=== PATIENT | male | born 1965 | race Caucasian/White ===

== ENCOUNTER → 2020-07-29 15:55 | Outpatient (BNVA) | payer OTHER, SELFPAY | PROVIDERS: PCP Internal Medicine; Visit Provider Urology ==

== ENCOUNTER → 2020-10-27 11:55 | Outpatient (BNVA) | payer OTHER, SELFPAY | PROVIDERS: PCP Internal Medicine; Visit Provider Urology ==

== ENCOUNTER → 2021-04-27 09:28 | Outpatient (BNVA) | payer OTHER, SELFPAY | PROVIDERS: PCP Internal Medicine; Visit Provider Urology ==

== ENCOUNTER → 2021-11-03 11:45 | Outpatient (BNVA) | payer OTHER, SELFPAY | PROVIDERS: PCP Internal Medicine; Visit Provider Urology | DX: Z13.89 Encounter for screening for other disorder (principal) ==

== ENCOUNTER 2022-05-04 11:32 | Outpatient (AMB) | payer OTHER, SELFPAY ==
--- NOTE | 2022-05-04 11:32 | A.OFFVIS_ITS ---
Intake Intake Visit Reasons: 6 Month PSA(SET) Intake Note: fu psa Hand Striper Required: No Allergies lisinopril Allergy (Unknown, Uncoded 03/15/23 09:21) Unknown Medication List - Last Reconciled 05/04/22 by Jairo Nam MD atorvastatin 40 mg PO DAILY losartan 100 mg PO DAILY naproxen 500 mg PO BID terazosin 5 mg PO BEDTIME 90 days HPI HPI Comments History of Present Illness Details Pérez NAVA is a very pleasant male. He is a patient of Dr Pinedo. He is seen for the following urologic conditions. - lower urinary tract symptoms - erectile dysfunction Telemedicine evaluation 15 minutes consultation [employer] [facility] Video attempted Trial of tadalafil Three month follow-up Change dosage Lower Urinary Tract Symptoms: Good response to terazosin Continue with 5 mg Nocturia x1-2 Current visit is for further evaluation of, lower urinary tract symptoms, predominate obstructive symptoms. Prior treatments include Cystitis in 2016 responded to short course of prophylaxis. Prostate Symptom Score Mild (0-8), Bother 3. Symptoms include weak stream, straining, nocturia (>2), and are progressing - 07/21 nocturia x 1 symptoms stable PSA 04/20 0.5, 04/21 0.5 Results from testing include cystoscopy - high riding bladder neck (median bar) 05/17 - patch on top of bladder - biopsy taken Prostate volume 30-50gm Erectile dysfunction Good response to daily tadalafil 5mg PFSH Medical History Bladder outlet obstruction Cystitis Erectile dysfunction due to arterial insufficiency High cholesterol HTN (hypertension) Weak urinary stream Review of Systems Const All systems reviewed & are unremarkable except as noted in HPI and below Reports no additional complaints Resp Reports no additional complaints GI Reports no additional complaints Reports as per HPI Musc Reports no additional complaints Physical Exam Telemedicine evaluation Appropriate responses Regular breathing rate and rhythm HEENT Head: Yes normal to inspection Ears: hearing grossly normal bilaterally Eyes General: appearance normal, both eyes and all related structures Neck Neck: Yes normal visual inspection Chest Chest palpation & inspection: normal inspection of the chest Resp Effort & Inspection: normal respiratory effort and able to speak in complete sentences Assessment & Plan Assessment & Plan (1) Weak urinary stream: Code(s): R39.12 - Poor urinary stream (2) BPH w urinary obs/LUTS: Code(s): N40.1 - Benign prostatic hyperplasia with lower urinary tract symptoms; N13.8 - Other obstructive and reflux uropathy (3) Erectile dysfunction: Comment: Good response to tadalafil daily Code(s): N52.9 - Male erectile dysfunction, unspecified Plan Trial of daily tadalafil Medications: New tadalafil 5 mg PO DAILY 90 tabs 1RF sexual activity 90 days N52.9 - Male erectile dysfunction, unspecified, N52.01 - Erectile dysfunction due to arterial insufficiency Refilled terazosin 5 mg PO BEDTIME 90 caps 1RF 90 days N52.9 - Male erectile dysfunction, unspecified Discontinued 2 tadalafil 60 minutes before activity Discontinued Reason: Patient no longer taking 20 mg PO .As needed 30 days PRN 30 tabs 0RF sexual activity N52.01 - Erectile dysfunction due to arterial insufficiency Patient Instructions: Imaging studies, laboratory and physical exam results were discussed and reviewed in detail. No major barriers to patient understanding were identified. An opportunity to ask questions regarding the treatment plan was provided. All questions were answered. The patient expressed understanding and agreement with the above treatment plan. The patient is aware they should contact our office by phone for worsening of their current condition or the appearance of new urologic symptoms. Compliance is encouraged with any medications and followup testing that is ordered. It is a privilege to participate in the urologic care of your patient. If you have any questions or concerns regarding treatment for the above conditions, or other urologic issues, please do not hesitate to contact me. The office telephone contact is [phone]. This note is constructed using voice recognition software. While every effort has been made to ensure accuracy bindery machine setter/set up operator errors may have been included. Yours sincerely, Dr Jairo Nam MD, [facility] - Urology Providers of Expert, Compassionate Care for the Genitourinary System Telehealth Telehealth Location of provider rendering services: practice address Location of patient: address on file Patient Identification confirmed using: Name, : Yes Telehealth method: video Patient verbally consented to treatment: Yes Patient verbally consented to billing insurance company: Yes Patient informed of any privacy concerns related to visit: Yes Coding Level of Care Code Tele Est Pt Level 4 (19574) Diagnoses Weak urinary stream R39.12 BPH w urinary obs/LUTS N40.1; N13.8 Erectile dysfunction N52.9
== END 2022-05-04 13:28 | disposition home or self-care (01) ==
LOC: HO.HUSH 11:32
PROVIDERS: PCP Internal Medicine; Visit Provider Urology
DX: N40.1 Benign prostatic hyperplasia with lower urinary tract symptoms (principal); R39.12 Poor urinary stream; N13.8 Other obstructive and reflux uropathy; N52.9 Male erectile dysfunction, unspecified
CPT/HCPCS: 99214; 99499

== ENCOUNTER → 2022-11-09 10:31 | Outpatient (BNVA) | payer OTHER, SELFPAY | PROVIDERS: PCP Internal Medicine; Visit Provider Urology | DX: N40.1 Benign prostatic hyperplasia with lower urinary tract symptoms (principal); N13.8 Other obstructive and reflux uropathy; N52.1 Erectile dysfunction due to diseases classified elsewhere; R35.1 Nocturia; R39.12 Poor urinary stream; R39.16 Straining to void; Z79.899 Other long term (current) drug therapy | CPT/HCPCS: 51798 ==

== ENCOUNTER 2023-03-15 09:20 | Outpatient (AMB) | payer OTHER, SELFPAY ==
--- NOTE | 2023-03-15 09:20 | MHC.OFFVIS ---
Intake Intake Visit Reasons: 6m follow up Intake Note: Patient is present for follow up BPH/Erectile Dysfunction Urology Medications: Tadalafil, Terazosin Blood Thinner: None Principal Trainer Required: No Allergies lisinopril Allergy (Unknown, Uncoded 03/15/23 09:21) Unknown HPI HPI Comments History of Present Illness Details Pérez NAVA is a very pleasant male. He is a patient of Dr Pinedo. He is seen for the following urologic conditions. 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 Prior treatments include Cystitis in 2017 responded to short course of prophylaxis. Prostate Symptom Score Mild (0-8), Bother 3. Symptoms include weak stream, straining, nocturia (>2), and are progressing - 07/21 nocturia x 1 symptoms stable PSA 04/20 0.5, 04/21 0.5 Results from testing include cystoscopy - high riding bladder neck (median bar) 05/17 - patch on top of bladder - biopsy taken Prostate volume 30-50gm Erectile dysfunction Good response to daily tadalafil 5mg [facility] Medical History Bladder outlet obstruction Cystitis Erectile dysfunction due to arterial insufficiency High cholesterol HTN (hypertension) Weak urinary stream Review of Systems Const All systems reviewed & are unremarkable except as noted in HPI and below Reports no additional complaints Resp Reports no additional complaints GI Reports no additional complaints Reports as per HPI Musc Reports no additional complaints Physical Exam Telemedicine evaluation Appropriate responses Regular breathing rate and rhythm HEENT Head: Yes normal to inspection Ears: hearing grossly normal bilaterally Eyes General: appearance normal, both eyes and all related structures Neck Neck: Yes normal visual inspection Chest Chest palpation & inspection: normal inspection of the chest Resp Effort & Inspection: normal respiratory effort and able to speak in complete sentences Assessment & Plan Assessment & Plan (1) BPH w urinary obs/LUTS: Code(s): N40.1 - Benign prostatic hyperplasia with lower urinary tract symptoms; N13.8 - Other obstructive and reflux uropathy (2) Erectile dysfunction: Comment: Good response to tadalafil daily Code(s): N52.9 - Male erectile dysfunction, unspecified (3) Weak urinary stream: Code(s): R39.12 - Poor urinary stream Plan Six month follow-up Patient Instructions: Imaging studies, laboratory and physical exam results were discussed and reviewed in detail. No major barriers to patient understanding were identified. An opportunity to ask questions regarding the treatment plan was provided. All questions were answered. The patient expressed understanding and agreement with the above treatment plan. The patient is aware they should contact our office by phone for worsening of their current condition or the appearance of new urologic symptoms. Compliance is encouraged with any medications and followup testing that is ordered. It is a privilege to participate in the urologic care of your patient. If you have any questions or concerns regarding treatment for the above conditions, or other urologic issues, please do not hesitate to contact me. The office telephone contact is [phone]. This note is constructed using voice recognition software. While every effort has been made to ensure accuracy manager forensic errors may have been included. Yours sincerely, Dr Jairo Nam MD, [facility] - Urology Providers of Expert, Compassionate Care for the Genitourinary System Telehealth Telehealth Location of provider rendering services: practice address Location of patient: address on file Patient Identification confirmed using: Name, : Yes Telehealth method: video Patient verbally consented to treatment: Yes Patient verbally consented to billing insurance company: Yes Patient informed of any privacy concerns related to visit: Yes Coding Level of Care Code Tele Est Pt Level 3 (83684) Diagnoses BPH w urinary obs/LUTS N40.1; N13.8 Erectile dysfunction N52.9 Weak urinary stream R39.12
== END 2023-03-15 10:22 | disposition home or self-care (01) ==
LOC: HO.HUSH 09:20
PROVIDERS: PCP Internal Medicine; Visit Provider Urology
DX: N40.1 Benign prostatic hyperplasia with lower urinary tract symptoms (principal); N13.8 Other obstructive and reflux uropathy; N52.9 Male erectile dysfunction, unspecified; R39.12 Poor urinary stream
CPT/HCPCS: 99213

== ENCOUNTER → 2023-03-15 09:20 | Outpatient (BNVA) | payer OTHER, SELFPAY | PROVIDERS: PCP Internal Medicine; Visit Provider Urology ==

== ENCOUNTER 2023-10-31 09:48 | Outpatient (AMB) | payer OTHER, SELFPAY ==
--- NOTE | 2023-10-31 10:19 | A.OFFVIS_ITS ---
Intake Visit Reasons: 6M PVR Intake Note: Patient is Present for PVR/ Urology Med: Terazosin, Tadalafil Antibiotic Allergy: None Blood Thinner: None Todays PVR: 57 Allergies lisinopril Allergy (Unknown, Uncoded 03/15/23 09:21) Unknown Medication List - Last Reconciled 10/31/23 by Jairo Nam MD atorvastatin 40 mg PO DAILY losartan 100 mg PO DAILY tadalafil 5 mg PO DAILY 90 days terazosin 5 mg PO BEDTIME 90 days HPI Comments Details: Pérez NAVA is a very pleasant male. He is a patient of Dr Pinedo. He is seen for the following urologic conditions. 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 Prior treatments include Cystitis in 2017 responded to short course of prophylaxis. Prostate Symptom Score Mild (0-8), Bother 3. Symptoms include weak stream, straining, nocturia (>2), and are progressing - 07/21 nocturia x 1 symptoms stable PSA 04/20 0.5, 04/21 0.5 Results from testing include cystoscopy - high riding bladder neck (median bar) 05/17 - patch on top of bladder - biopsy taken Prostate volume 30-50gm Erectile dysfunction Good response to daily tadalafil 5mg PFSH Medical History Bladder outlet obstruction Cystitis Erectile dysfunction due to arterial insufficiency High cholesterol HTN (hypertension) Weak urinary stream Review of Systems Const Denies chills and Denies fever(s) Card Reports no additional complaints and Denies syncope Resp Denies cough GI Denies abdominal pain and Denies heartburn Reports as per HPI and Denies change in libido Neuro Denies syncope Psych Denies change in libido Endo Denies change in libido Physical Exam Const General: cooperative, healthy appearing, comfortable and no acute distress Orientation/consciousness: patient oriented x3 HEENT Face and sinus: Yes normal facial exam Mouth: moist mucous membranes Neck Neck: Yes normal visual inspection, Yes full ROM and Yes trachea midline Chest Chest palpation & inspection: normal inspection of the chest Resp Effort & Inspection: normal respiratory effort, able to speak in complete sentences and no respiratory distress GI Inspection: Yes normal to inspection Back/Spine/Pelvis Cervical Spine: normal cervical lordosis Thoracic/Lumbar Spine: thoracic and lumbar spine normal to inspection Skin General skin exam: no rashes or lesions noted Neuro General: patient oriented x3, gait normal, tone normal and moves all extremities Extrem General: Yes normal to inspection and Yes capillary refill normal Office Procedures Post Void Residual Post Residual Void Post Void Residual (PVR): 57 [id number] Void Residual by ultrasound Assessment & Plan Assessment & Plan (1) Erectile dysfunction: Comment: Good response to tadalafil daily Code(s): N52.9 - Male erectile dysfunction, unspecified Category: Medical (2) BPH w urinary obs/LUTS: Code(s): N40.1 - Benign prostatic hyperplasia with lower urinary tract symptoms; N13.8 - Other obstructive and reflux uropathy Category: Medical (3) Weak urinary stream: Code(s): R39.12 - Poor urinary stream Category: Medical Plan Prescription refill Six-month follow-up Orders: Orders AMB Post Void Residual by ultrasound Today N13.8 - Other obstructive and reflux uropathy, N40.1 - Benign prostatic hyperplasia with lower urinary tract symptoms Patient Instructions: Imaging studies, laboratory and physical exam results were discussed and reviewed in detail. No major barriers to patient understanding were identified. An opportunity to ask questions regarding the treatment plan was provided. All questions were answered. The patient expressed understanding and agreement with the above treatment plan. The patient is aware they should contact our office by phone for worsening of their current condition or the appearance of new urologic symptoms. Compliance is encouraged with any medications and followup testing that is ordered. It is a privilege to participate in the urologic care of your patient. If you have any questions or concerns regarding treatment for the above conditions, or other urologic issues, please do not hesitate to contact me. The office telephone contact is [phone]. This note is constructed using voice recognition software. While every effort has been made to ensure accuracy core finisher errors may have been included. Yours sincerely, Dr Jairo Nam MD, [facility] - Urology Providers of Expert, Compassionate Care for the Genitourinary System Coding Level of Care Code Est Pt Level 3 (31511) Diagnoses Erectile dysfunction N52.9 BPH w urinary obs/LUTS N40.1; N13.8 Weak urinary stream R39.12 CPT Codes Post Residual Void - PVR CPT Code: 06709-Rufx Void Residual by ultrasound ([id number])
== END 2023-10-31 10:49 | disposition home or self-care (01) ==
PROVIDERS: PCP Internal Medicine; Visit Provider Urology
DX: N52.9 Male erectile dysfunction, unspecified (principal); N40.1 Benign prostatic hyperplasia with lower urinary tract symptoms; N13.8 Other obstructive and reflux uropathy; R39.12 Poor urinary stream
CPT/HCPCS: 99213

== ENCOUNTER → 2023-10-31 09:48 | Outpatient (BNVA) | payer OTHER, SELFPAY | PROVIDERS: PCP Internal Medicine; Visit Provider Urology | DX: N52.9 Male erectile dysfunction, unspecified (principal); N40.1 Benign prostatic hyperplasia with lower urinary tract symptoms; N13.8 Other obstructive and reflux uropathy; R39.12 Poor urinary stream | CPT/HCPCS: 51798 ==

== ENCOUNTER 2024-05-01 09:40 | Outpatient (AMB) | payer OTHER, SELFPAY ==
--- NOTE | 2024-05-01 09:51 | MHC.OFFVIS ---
Intake Visit Reasons: 6m follow up Intake Note: Patient is present for PVR Follow up Urology Med: Terazosin, Tadalafil- Patient is requesting refills on both meds Antibiotic Allergy:None Blood Thinner: None Last PSA: 2021 0.5 Last PVR:57ml Todays PVR:30ml Roll Wrapper Required: No Accompanied by: Self / Same As Patient Allergies lisinopril Allergy (Unknown, Uncoded 05/01/24 09:56) Unknown HPI Comments Details: Pérez NAVA is a very pleasant male. He is a patient of Dr Pinedo. He is seen for the following urologic conditions. 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 Prior treatments include Cystitis in 2016 responded to short course of prophylaxis. Prostate Symptom Score Mild (0-8), Bother 3. Symptoms include weak stream, straining, nocturia (>2), and are progressing - 07/21 nocturia x 1 symptoms stable PSA 04/20 0.5, 04/21 0.5 Results from testing include cystoscopy - high riding bladder neck (median bar) 05/17 - patch on top of bladder - biopsy taken Prostate volume 30-50gm Erectile dysfunction Good response to daily tadalafil 5mg [facility] Medical History HTN (hypertension) High cholesterol Bladder outlet obstruction Erectile dysfunction due to arterial insufficiency Cystitis Weak urinary stream Review of Systems Const Denies chills and Denies fever(s) Card Reports no additional complaints and Denies syncope Resp Denies cough GI Denies abdominal pain and Denies heartburn Reports as per HPI and Denies change in libido Neuro Denies syncope Psych Denies change in libido Endo Denies change in libido Physical Exam Const General: cooperative, healthy appearing, comfortable and no acute distress Orientation/consciousness: patient oriented x3 HEENT Face and sinus: Yes normal facial exam Mouth: moist mucous membranes Neck Neck: Yes normal visual inspection, Yes full ROM and Yes trachea midline Chest Chest palpation & inspection: normal inspection of the chest Resp Effort & Inspection: normal respiratory effort, able to speak in complete sentences and no respiratory distress GI Inspection: Yes normal to inspection Back/Spine/Pelvis Cervical Spine: normal cervical lordosis Thoracic/Lumbar Spine: thoracic and lumbar spine normal to inspection Skin General skin exam: no rashes or lesions noted Neuro General: patient oriented x3, gait normal, tone normal and moves all extremities Extrem General: Yes normal to inspection and Yes capillary refill normal Office Procedures Post Void Residual Post Residual Void Post Void Residual (PVR): 30 [id number] Void Residual by ultrasound Assessment & Plan Assessment & Plan (1) Erectile dysfunction: Comment: Good response to tadalafil daily Code(s): N52.9 - Male erectile dysfunction, unspecified Category: Medical (2) BPH w urinary obs/LUTS: Code(s): N40.1 - Benign prostatic hyperplasia with lower urinary tract symptoms; N13.8 - Other obstructive and reflux uropathy Category: Medical Plan Twelve month follow-up Orders: Orders AMB Post Void Residual by ultrasound Today N13.8 - Other obstructive and reflux uropathy, N40.1 - Benign prostatic hyperplasia with lower urinary tract symptoms Medications: Refilled terazosin 5 mg PO BEDTIME 90 days 90 caps 3RF N52.9 - Male erectile dysfunction, unspecified tadalafil 5 mg PO DAILY 90 days 90 tabs 3RF sexual activity N52.9 - Male erectile dysfunction, unspecified Patient Instructions: Imaging studies, laboratory and physical exam results were discussed and reviewed in detail. No major barriers to patient understanding were identified. An opportunity to ask questions regarding the treatment plan was provided. All questions were answered. The patient expressed understanding and agreement with the above treatment plan. The patient is aware they should contact our office by phone for worsening of their current condition or the appearance of new urologic symptoms. Compliance is encouraged with any medications and followup testing that is ordered. It is a privilege to participate in the urologic care of your patient. If you have any questions or concerns regarding treatment for the above conditions, or other urologic issues, please do not hesitate to contact me. The office telephone contact is [phone]. This note is constructed using voice recognition software. While every effort has been made to ensure accuracy serology technician errors may have been included. Yours sincerely, Dr Jairo Nam MD, [facility] - Urology Providers of Expert, Compassionate Care for the Genitourinary System Coding Level of Care Code Est Pt Level 3 (47308) Diagnoses Erectile dysfunction N52.9 BPH w urinary obs/LUTS N40.1; N13.8 CPT Codes Post Residual Void - PVR CPT Code: [id number] Void Residual by ultrasound ([id number])
== END 2024-05-01 10:41 | disposition home or self-care (01) ==
LOC: HO.HUSH 09:40
PROVIDERS: PCP Internal Medicine; Visit Provider Urology
DX: N52.9 Male erectile dysfunction, unspecified (principal); N40.1 Benign prostatic hyperplasia with lower urinary tract symptoms; N13.8 Other obstructive and reflux uropathy
CPT/HCPCS: 99213

== ENCOUNTER → 2024-05-01 09:40 | Outpatient (BNVA) | payer OTHER, SELFPAY | PROVIDERS: PCP Internal Medicine; Visit Provider Urology | DX: N40.1 Benign prostatic hyperplasia with lower urinary tract symptoms (principal); N13.8 Other obstructive and reflux uropathy; R35.1 Nocturia; N52.9 Male erectile dysfunction, unspecified; Z79.899 Other long term (current) drug therapy | CPT/HCPCS: 51798 ==

== ENCOUNTER 2025-05-04 10:20 | Outpatient (AMB) | payer OTHER, SELFPAY ==
--- NOTE | 2025-05-04 10:28 | MHC.OFFVIS ---
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 He is a patient of Dr Pinedo. He is seen for the following urologic conditions. 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 Prior treatments include Cystitis in 2017 responded to short course of prophylaxis. Prostate Symptom Score Mild (0-8), Bother 3. Symptoms include weak stream, straining, nocturia (>2), and are progressing - 07/21 nocturia x 1 symptoms stable PSA 04/20 0.5, 04/21 0.5 Results from testing include cystoscopy - high riding bladder neck (median bar) 05/17 - patch on top of bladder - biopsy taken Prostate volume 30-50gm Erectile dysfunction Good response to daily tadalafil 5mg PFSH Medical History HTN (hypertension) High cholesterol Bladder outlet obstruction Erectile dysfunction due to arterial insufficiency Cystitis Weak urinary stream Review of Systems Const Denies chills and Denies fever(s) Card Reports no additional complaints and Denies syncope Resp Denies cough GI Denies abdominal pain and Denies heartburn Reports as per HPI and Denies change in libido Neuro Denies syncope Psych Denies change in libido Endo Denies change in libido Physical Exam Const General: cooperative, healthy appearing, comfortable and no acute distress Orientation/consciousness: patient oriented x3 HEENT Face and sinus: Yes normal facial exam Mouth: moist mucous membranes Neck Neck: Yes normal visual inspection, Yes full ROM and Yes trachea midline Chest Chest palpation & inspection: normal inspection of the chest Resp Effort & Inspection: normal respiratory effort, able to speak in complete sentences and no respiratory distress GI Inspection: Yes normal to inspection Back/Spine/Pelvis Cervical Spine: normal cervical lordosis Thoracic/Lumbar Spine: thoracic and lumbar spine normal to inspection Skin General skin exam: no rashes or lesions noted Neuro General: patient oriented x3, gait normal, tone normal and moves all extremities Extrem General: Yes normal to inspection and Yes capillary refill normal Office Procedures Post Void Residual Post Residual Void Post Void Residual (PVR): 0 [id number] Void Residual by ultrasound Results AMB Urinalysis, Automated UA Leukoctes 0 Bryce/uL Last Edit by Esperanza Gray [facility] on 05/04/25 10:39 UA Nitrite Negative Last Edit by Esperanza Gray [facility] on 05/04/25 10:39 UA Urobilinogen 0.2 mg/dL Last Edit by Esperanza Gray [facility] on 05/04/25 10:39 UA Protein 0 mg/dL Last Edit by Esperanza Gray [facility] on 05/04/25 10:39 UA pH 8.5 Last Edit by Esperanza Gray [facility] on 05/04/25 10:39 UA Blood 0 Dinesh/uL Last Edit by Esperanza Gray [facility] on 05/04/25 10:39 UA Specific Lester 1.010 Last Edit by Esperanza Gray [facility] on 05/04/25 10:39 UA Ketone Negative Last Edit by Esperanza Gray [facility] on 05/04/25 10:39 UA Bilirubin 0 mg/dL Last Edit by Esperanza Gray [facility] on 05/04/25 10:39 UA Glucose 0 mg/dL Last Edit by Esperanza Gray [facility] on 05/04/25 10:39 Results Reviewed Results Reviewed: Laboratory Last Values Urine pH (Auto) 8.5 05/04/25 10:39 Specific Lester (Auto) 1.010 05/04/25 10:39 Urine Protein (Auto) 0 mg/dL 05/04/25 10:39 Glucose (UA)(Auto) 0 mg/dL 05/04/25 10:39 Urine Ketones (Auto) Negative 05/04/25 10:39 Urine Blood (Auto) 0 Dinesh/uL 05/04/25 10:39 Urine Nitrite (Auto) Negative 05/04/25 10:39 Urine Bilirubin (Auto) 0 mg/dL 05/04/25 10:39 Urine Urobilinogen (Auto) 0.2 mg/dL 05/04/25 10:39 Leukocyte Esterase (Auto) 0 Bryce/uL 05/04/25 10:39 Assessment & Plan Assessment & Plan (1) BPH w urinary obs/LUTS: Code(s): N40.1 - Benign prostatic hyperplasia with lower urinary tract symptoms; N13.8 - Other obstructive and reflux uropathy Category: Medical (2) Erectile dysfunction: Comment: Good response to tadalafil daily Code(s): N52.9 - Male erectile dysfunction, unspecified Category: Medical Plan Twelve month follow-up office PVR and PSA Medications: Refilled terazosin 5 mg PO BEDTIME 90 caps 3RF 90 days N52.9 - Male erectile dysfunction, unspecified tadalafil 5 mg PO DAILY 90 tabs 3RF sexual activity 90 days N52.9 - Male erectile dysfunction, unspecified Patient Instructions: This note is constructed using voice recognition software. 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 Imaging studies, laboratory and physical exam results were discussed and reviewed in detail. No major barriers to patient understanding were identified. An opportunity to ask questions regarding the treatment plan was provided. All questions were answered. The patient expressed understanding and agreement with the above treatment plan. The patient is aware they should contact our office by phone for worsening of their current condition or the appearance of new urologic symptoms. Compliance is encouraged with any medications and followup testing that is ordered. It is a privilege to participate in the urologic care of your patient. If you have any questions or concerns regarding treatment for the above conditions, or other urologic issues, please do not hesitate to contact me. The office telephone contact is [phone]. Sincerely, Dr Jairo Nam MD, [facility] - Urology Compassionate Specialist Care for the Genitourinary System Coding Level of Care Code Est Pt Level 4 (87509) Complex EM visit Add On G2211 Diagnoses BPH w urinary obs/LUTS N40.1; N13.8 Erectile dysfunction N52.9 CPT Codes Post Residual Void - PVR CPT Code: 21070-Akee Void Residual by ultrasound ([id number])
== END 2025-05-04 11:03 | disposition home or self-care (01) ==
LOC: HO.HUSH 10:20
PROVIDERS: PCP Internal Medicine; Visit Provider Urology
DX: N40.1 Benign prostatic hyperplasia with lower urinary tract symptoms (principal); N13.8 Other obstructive and reflux uropathy; N52.9 Male erectile dysfunction, unspecified
CPT/HCPCS: 99214

== ENCOUNTER → 2025-05-04 10:20 | Outpatient (BNVA) | payer OTHER, SELFPAY | PROVIDERS: PCP Internal Medicine; Visit Provider Urology | DX: N40.1 Benign prostatic hyperplasia with lower urinary tract symptoms (principal); N13.8 Other obstructive and reflux uropathy; N52.9 Male erectile dysfunction, unspecified | CPT/HCPCS: 51798 ==